=== PATIENT | male | born 1985 | race Caucasian/White ===

== ENCOUNTER 2023-04-20 19:16 | Observation (INO) | payer OTHER ==
[2023-04-20 19:37] VITALS: BMI 21.1
[2023-04-20] MEDS ORDERED: SODIUM CHLORIDE 0.9% 1000 ML INFUS.BAG IV ONE (20:14)
[2023-04-20] MEDS ORDERED: ACETAMINOPHEN 1000 MG/100 ML BAG IVPB ONE (20:17)
[2023-04-20 20:33] LABS: BASO % 0.5 % (0-2.0); EOS % 2.3 % (0-4.5); HEMATOCRIT 43.9 % (35.4-49); MCH 29.9 pg (25.7-33.7); MCHC 34.3 g/dl (32.0-35.9); MEAN CELL VOLUME 87.3 fl (80-96); MEAN PLT VOLUME 6.6 fl (7.5-11.1); MONO % 8.1 % (3.8-10.2); NEUT % 74.1 % (42.8-82.8); PLATELET COUNT 295 10^3/uL (134-434); RBC 5.02 M/mm3 (4.00-5.60); RDW 13.8 % (11.9-15.9); WHITE BLOOD COUNT 8.1 K/mm3 (4.0-10.0)
[2023-04-20] MEDS ORDERED: ACETAMINOPHEN INJECTION 100 ML IVPB ONE (20:34)
[2023-04-20 20:45] LABS: INR 1.13 (0.83-1.09); PROTHROMBIN TIME (PATIENT) 13.1 SEC (9.7-13.0)
[2023-04-20 20:48] LABS: ACTIVATED PTT 29.5 SECONDS (25.2-36.5)
[2023-04-20 20:54] LABS: POTASSIUM 3.9 mmol/L (3.5-5.1)
[2023-04-20 20:55] LABS: CALCIUM 9.7 mg/dL (8.5-10.1)
[2023-04-20 20:56] LABS: ALBUMIN 4.4 g/dl (3.4-5.0); BLOOD UREA NITROGEN 16.8 mg/dL (7-18)
[2023-04-20 20:59] LABS: CREATININE 0.9 mg/dL (0.55-1.3)
[2023-04-20 21:00] LABS: BILIRUBIN,TOTAL 0.4 mg/dL (0.2-1)
[2023-04-20 21:01] LABS: TOT PROT 7.7 g/dl (6.4-8.2)
[2023-04-20 22:32] LABS: MAGNESIUM 2.2 mg/dL (1.8-2.4)
[2023-04-20] MEDS ORDERED: LACTATED RINGERS SOLUTION 1,000 ML/1,000 ML INFUS.BAG IV SCH (23:45)
[2023-04-21 01:51] LABS: METHADONE, UR NEGATIVE (NEGATIVE); URINE BENZODIAZEPINES NEGATIVE (NEGATIVE)
[2023-04-21 01:52] LABS: COCAINE, UR NEGATIVE (NEGATIVE); OPIATES, URI NEGATIVE (NEGATIVE); PHENCYCLIDINE,URINE NEGATIVE (NEGATIVE); URINE AMPHETAMINES NEGATIVE (NEGATIVE); URINE BARBITURATES NEGATIVE (NEGATIVE)
[2023-04-21 02:41] LABS: PH,URINE 6.5 (5.0-8.0); URINE APPEARANCE CLEAR; URINE BILIRUBIN NEGATIVE (NEGATIVE); URINE COLOR YELLOW; URINE GLUCOSE (UA) NEGATIVE (NEGATIVE); URINE KETONE 1+ (NEGATIVE); URINE LEUK ESTERASE NEGATIVE (NEGATIVE); URINE NITRITE NEGATIVE (NEGATIVE); URINE PROTEIN NEGATIVE (NEGATIVE); URINE UROBILINOGEN 0.2 mg/dL (0.2-1.0)
[2023-04-21] MEDS ORDERED: KETOROLAC TROMETHAMINE 15 MG/ML VIAL IVPUSH ONE (03:22)
[2023-04-21] MEDS ORDERED: KETOROLAC TROMETHAMINE 15 MG/ML VIAL ONE (03:33)
[2023-04-21] MEDS ORDERED: SODIUM CHLORIDE 1,000 ML IV SCH (04:15)
[2023-04-21 05:54] LABS: HEMATOCRIT 38.7 % (35.4-49); HEMOGLOBIN 13.6 GM/dL (11.7-16.9); MCH 30.5 pg (25.7-33.7); MCHC 35.2 g/dl (32.0-35.9); MEAN CELL VOLUME 86.7 fl (80-96); MEAN PLT VOLUME 6.9 fl (7.5-11.1); PLATELET COUNT 277 10^3/uL (134-434); RBC 4.47 M/mm3 (4.00-5.60); RDW 13.5 % (11.9-15.9)
[2023-04-21 06:13] LABS: POTASSIUM 3.7 mmol/L (3.5-5.1)
[2023-04-21 06:16] LABS: ALBUMIN 3.7 g/dl (3.4-5.0); BLOOD UREA NITROGEN 11.3 mg/dL (7-18); CALCIUM 8.9 mg/dL (8.5-10.1)
[2023-04-21 06:19] LABS: CREATININE 0.7 mg/dL (0.55-1.3)
[2023-04-21 06:21] LABS: BILIRUBIN,TOTAL 0.7 mg/dL (0.2-1); TOT PROT 6.8 g/dl (6.4-8.2)
[2023-04-21] MEDS: IBUPROFEN 400 MG TABLET (FP) PO PRN ×2 (06:59→17:04)
[2023-04-21] MEDS: ENOXAPARIN NA (PORCINE) 40 MG/0.4 ML DISP.SYRIN SQ SCH (11:03)
[2023-04-21] MEDS: ACETAMINOPHEN 325 MG TABLET (FP) PO PRN ×2 (11:04→21:53)
[2023-04-22 08:39] VITALS: RESP 18
[2023-04-22] MEDS: IBUPROFEN 400 MG TABLET (FP) PO PRN (08:51)
[2023-04-22] MEDS: ENOXAPARIN NA (PORCINE) 40 MG/0.4 ML DISP.SYRIN SQ SCH (09:01)
[2023-04-22] MEDS: ACETAMINOPHEN 325 MG TABLET (FP) PO PRN (13:44)
[2023-04-22 15:20] VITALS: BP 120/81; PULSE 85; TEMP 98.4
== END 2023-04-22 15:21 | disposition home or self-care (01) ==
LOC: JER 19:16 → JERBED 04-21 03:01 → J4W 04-21 06:05
PROVIDERS: ADMIT Internal Medicine; ATTEND Internal Medicine
PROC: 3E033NZ Introduction of Analgesics, Hypnotics, Sedatives into Peripheral Vein, Percutaneous Approach (ICD-10-PCS; principal; 2023-04-21)
PROC: 3E0333Z Introduction of Anti-inflammatory into Peripheral Vein, Percutaneous Approach (ICD-10-PCS; 2023-04-21)
PROC: 3E0337Z Introduction of Electrolytic and Water Balance Substance into Peripheral Vein, Percutaneous Approach (ICD-10-PCS; 2023-04-21)
PROC: 3E033GC Introduction of Other Therapeutic Substance into Peripheral Vein, Percutaneous Approach (ICD-10-PCS; 2023-04-21)
PROC: 3E013GC Introduction of Other Therapeutic Substance into Subcutaneous Tissue, Percutaneous Approach (ICD-10-PCS; 2023-04-21)
DX: R00.0 Tachycardia, unspecified (principal); G24.02 Drug induced acute dystonia; R59.9 Enlarged lymph nodes, unspecified; R07.0 Pain in throat; F41.9 Anxiety disorder, unspecified; M26.601 Right temporomandibular joint disorder, unspecified; F11.90 Opioid use, unspecified, uncomplicated; F14.90 Cocaine use, unspecified, uncomplicated; F17.210 Nicotine dependence, cigarettes, uncomplicated; Z86.69 Personal history of other diseases of the nervous system and sense organs
CPT/HCPCS: 0241U-QW; 36415; 70450-TC; 70491-TC; 71045-TC-FY; 80053; 80061; 80307; 81003; 82550; 83735; 84443; 84484; 85025; 85027; 85610; 85730; 86850; 86900; 86901; 93005; 93010; 93306-TC; 96372; 96374; 96375; 99285-25; G0378; Q9967